=== PATIENT | male | born 1970 | race Caucasian/White ===

== ENCOUNTER 2024-04-05 09:51 | Emergency (ER) | payer SELFPAY ==
[2024-04-05 09:52] VITALS: BP 145/74; PULSE 112; RESP 16; TEMP 37.9; O2SAT 98
[2024-04-05 09:55] VITALS: BMI 28.2
--- NOTE | 2024-04-05 10:26 | EDS_ITS ---
HPI History of Present Illness Chief Complaint: Fever Narrative Narrative: 64-year-old male who denies significant past medical history presents with viral syndrome type symptoms that he has had since yesterday. States he started not feeling well yesterday morning when he awoke. He has myalgias and arthralgias and had a fever. He has been intermittently taking ibuprofen liquid with mild relief of his symptoms. He has had a cough that is minimally productive of any clear sputum. He is also had slightly sore to scratchy throat. His main concern is the fever and the body aches. He denies any significant past medical history. [facility] Home Medications ?Medication ?Instructions ?Recorded ?Last Taken ?Type oseltamivir 75 mg capsule (Tamiflu) 75 mg PO BID 5 day s #10 caps 04/05/24 Unknown Rx Allergy/AdvReac Type Severity Reaction Status Date / Time No Known Allergies Allergy Verified 04/05/24 09:55 Social History Smoking Status: Never smoker ROS ROS ED ROS Narrative Constitutional: Positive fever, occasional chills. HEENT: Mild sore throat. No neck pain. No rhinorrhea. Cardiovascular: No chest pain. No palpitations. No pedal edema. Respiratory: Nonproductive to minimally productive cough, no shortness of breath. Abdominal: No abdominal pain. No nausea. No vomiting. Genitourinary: No dysuria. No hematuria. Musculoskeletal: Multiple myalgias and arthralgias. Neurologic: No headaches. No dizziness. No lightheadedness. Skin: No rash. EXAM Physical Exam Narrative Exam Narrative: Temperature 100.2 ?F, nontoxic-appearing. HEENT examination shows minimal pharyngeal erythema, airway patent. No tonsillar or pharyngeal exudate. No drooling or trismus. Neck is soft and supple without meningismus. No stridor. Cardiovascular examination reveals a mild tachycardia. Lungs are clear to auscultation bilaterally without wheezing, moving a good amount of air. Abdomen soft and nontender with positive bowel sounds. Neurological examination nonfocal and nonlateralizing. Const Vital Signs: 04/05/24 09:52 Temperature 100.2 F H Temperature Source Temporal Pulse Rate 112 H Respiratory Rate 16 Blood Pressure 145/74 H Blood Pressure Mean 97 Pulse Ox 98 Oxygen Delivery Method Room Air MDM MDM MDM Narrative Medical decision making narrative: Differential diagnosis includes but not limited to viral syndrome versus pneumonia versus strep throat. I have very low suspicion for strep throat given that he has a cough, and his main complaint is the fever and bodyaches. Concern is more for COVID versus influenza versus RSV. As he is afebrile here he will continue ibuprofen but he could use Tylenol as well as needed for pain. As his symptoms have been gone in the last 24 to 48 hours, if he has influenza he could be written for Tamiflu. I reviewed his respiratory swab and he is positive for influenza A. He was given his first dose of Tamiflu here and prescription written to take twice a day for the next 5 days. He will continue [id number] ibuprofen and/or Tylenol as needed for fever and pain. Return instructions to the emergency department were reviewed. Follow-up primary care. Disposition is discharged home in stable condition. History & Record Review Discussion w/independent historian: Patient Discharge Plan Triage Chief Complaint: Fever ED Provider: Ez Prince Dx/Rx/DC Orders Clinical Impression: Influenza A, Viral syndrome Instructions: ED Influenza (Adult), ED Viral Syndrome (Adult) Prescriptions: New oseltamivir [Tamiflu] 75 mg capsule 75 mg PO BID 5 Days Qty: 10 0RF Primary Care Provider: Care Physician,No Primary Referrals: Robinson Chisholm MD [Med Staff - Active Staff] - 1 Week if not improving Care Physician,No Primary [Primary Care Provider] - Activity Restrictions/Additional Instructions: Medication as directed. Continue Tylenol and/or ibuprofen as needed for fever or pain. Drink plenty of oral fluids. Print Language: Algerian Disposition Disposition: Home, Self Care
[2024-04-05] MEDS: Acetaminophen 325 MG Tablet 650 MG PO (10:42)
[2024-04-05] MEDS: Oseltamivir Phosphate 75 MG Capsule PO (12:05)
[2024-04-05 12:07] VITALS: BP 124/70; PULSE 95; RESP 18; TEMP 37.4; O2SAT 98
== END 2024-04-05 12:08 | disposition home or self-care (01) ==
PROVIDERS: Emergency Provider Emergency Medicine; Visit Provider Emergency Medicine
DX: J10.1 Influenza due to other identified influenza virus with other respiratory manifestations (principal); B34.9 Viral infection, unspecified
CPT/HCPCS: 87631; 99283